=== PATIENT | female | born 2000 | race African-American/Black ===

== ENCOUNTER 2022-03-16 16:15 | Emergency (ER) | payer SELFPAY ==
[~2022-03-16] VITALS: Ht 154.9 cm; Wt 58.1 kg
[2022-03-16 16:19] VITALS: BP 104/55
[2022-03-16] MEDS ORDERED: ONDANSETRON 4 MG ODT PO ONE (17:45)
--- NOTE | 2022-03-16 18:00 | NUR ---
AMBULATED TO ER BED 6 FROM [facility]
--- NOTE | 2022-03-16 18:05 | NUR ---
21 YVES FROM [facility]. PER EMS PATIENT CALLED 911 STATING SHE WAS FEELING NAUSEA AND WEAKNESS X1 DAY, REPORTS TAKING OTC COLD MEDS WITH NO RELIEF. DENIES FEVERS, SOB, CP OR RECENT SICK CONTACTS.
--- NOTE | 2022-03-16 18:18 | NUR ---
pt swabbed for covid(isra) and flu. walked and handed to lab
[2022-03-16 18:46] LABS: BARBITURATE, URINE NEGATIVE ng/ml (NEG <=200); BENZODIAZEPINE, URINE NEGATIVE ng/mL (NEG <=200); CANNABINOID, URINE NEGATIVE ng/mL (NEG <=50); COCAINE, URINE NEGATIVE ng/mL (NEG <=300); OPIATE, URINE NEGATIVE ng/mL (NEG <=2000); PHENCYCLIDINE SCREEN,URINE NEGATIVE ng/mL (NEG <=25)
--- NOTE | 2022-03-16 19:23 | NUR ---
REPORT GIVEN TO RAYRAY DELGADO. ALL QUESTIONS ANSWERED . TRANSFER OF CARE AT THIS TIME
[2022-03-16] MEDS ORDERED: ONDA-188 PO (19:27)
--- NOTE | 2022-03-16 19:44 | NUR ---
GABRIEL OFFERED FLUIDS AND CRACKERS, TOLERATED WELL. MADE AWARE.
[2022-03-16 19:50] VITALS: BP 110/61
--- NOTE | 2022-03-16 19:50 | NUR ---
Patient discharged with v/s stable. Written and verbal after care instructions given and explained. Patient alert, oriented and verbalized understanding of instructions. Ambulatory with steady gait. All questions addressed prior to discharge. ID band removed. Patient advised to follow up with PMD. Rx of ZOFRAN given.
--- NOTE | 2022-03-16 20:50 | NUR ---
Chart checked and completed.
== END 2022-03-16 19:50 | disposition home or self-care (01) ==
LOC: MED 16:15
DX: R11.0 Nausea (principal); R53.1 Weakness; R09.81 Nasal congestion; Z20.822 Contact with and (suspected) exposure to COVID-19; Z79.899 Other long term (current) drug therapy
CPT/HCPCS: 80305; 81002; 81025; 87426; 99285; Q0162